=== PATIENT | male | born 1975 | race African-American/Black ===

== ENCOUNTER 2019-10-01 09:56 | Emergency (ER) | payer BC, MEDICAID ==
[~2019-10-01] VITALS: Ht 180.3 cm; Wt 84.0 kg
[2019-10-01 09:59] VITALS: BP 140/91
[2019-10-01] MEDS ORDERED: ACETAMINOPHEN 325MG TABLET PO ONE (10:30)
[2019-10-01] MEDS ORDERED: FLUORESCEIN SODIUM 1MG/STRIP LEFTEYE ONE (10:30)
[2019-10-01] MEDS ORDERED: TETRACAINE 0.5% OPHTH DROPS 4ML LEFTEYE ONE (10:30)
== END 2019-10-01 12:30 | disposition home or self-care (01) ==
LOC: ER 09:56
DX: H10.212 Acute toxic conjunctivitis, left eye (principal); F12.10 Cannabis abuse, uncomplicated; F17.200 Nicotine dependence, unspecified, uncomplicated
CPT/HCPCS: 99284